=== PATIENT | female | born 1955 | race Caucasian/White ===

== ENCOUNTER 2024-09-04 10:18 | Outpatient (AMB) | payer MEDICARE, MEDICAID, SELFPAY ==
[2024-09-04 10:51] VITALS: BP 154/85; PULSE 57; RESP 18; TEMP 36.7; O2SAT 93; BMI 27.4
--- NOTE | 2024-09-04 10:51 | PD.ORTHCLVIS ---
Vital signs 09/04/24 10:51 Height 1.47 m Height Method Stated Weight 59.647 kg Weight Measurement Method Standing Scale BMI 27.4 BP 154/85 H Blood Pressure Source Automatic Cuff Blood Pressure Location Left Upper Arm Position Sitting Respiration 18 Pulse 57 L Pulse Source Monitor Temp 98.0 F Temp Source Temporal Artery Scan Pulse Oximetry (%) 93 L Oxygen Delivery Method Room Air Med/Allergies Allergies & Medications Allergies codeine Allergy (Intermediate, Verified 09/04/24 10:53) Hives Medication Reconciliation Unobtainable 09/04/24 [History Confirmed 09/04/24] Exam Exam Breathing is nonlabored. Patient has a normal mood and affect. Bilateral extremities were evaluated and demonstrates sensation intact to light touch. Palpable pedal pulses are present. No significant edema is present. Bilateral hips were examined. The patient has no pain with log roll of the hips. Internal rotation to 30 degrees and external rotation to 30 degrees is painless. Negative FADIR. Left knee was examined today. The left knee is in reasonable alignment. Range of motion from 0-120 degrees. Knee is stable to varus and valgus as well as AP translation with <5mm. Patient has a negative McMurrays. There is no pain with patellofemoral compression and no crepitus noted. The knee is nontender to palpation. The right knee was also examined. The patient has a chevron incision. Range of motion 0 to 100 degrees Assessment and Plan Problem List (1) Osteoarthritis of right knee: Status: Acute Plan: Patient is a 69-year-old female with right knee pain and posttraumatic right knee arthritis. She is extensive hardware in the right knee and they have no screw heads which would make the removal very difficult. A total knee replacement would also be may be impossible because of the location of the prior incision. We will continue with conservative treatment for now Recommend knee cortisone injection as patient would like to proceed with conservative treatment at this time. The risks and benefits of the procedure were reviewed with the patient and patient gave verbal consent to continue with the procedure. Procedure: performed by Dr. Boss Using sterile technique the Right knee was thoroughly prepped with alcohol, and approximately 1 cc of Kenalog 40 mg/mL and 4 cc of 1% lidocaine was injected without resistance into the medial tibial femoral joint space. The patient tolerated the procedure. Advanced Care Planning Discussion Advance care planning discussed with:: patient Office Procedures GNS Level of Care Nursing/Assessment Patient Status: Initial/New Patient Nursing Assessment/Reassesment: Medication Reconciliation, Update PMH in EMR and Vital Signs Coordination of Care: Complex Care and Chronic Disease 1-5, Education Complex Pt/Fam, Consent,records obtained, informed consent, 1 Ins Authorization, Lab and Imaging orders, Results/Orders obtained and Staff clarify orders New Patient Charge New Patient Point Assignment: [id number] New Patient Point Charge: LIQUIFIED NATURAL GAS TECHNICIAN Level 4 (3769-9531) Surgical Proc/IM SQ injection Major Surgical Procedure: Yes (KNEE INJECTION) Medication Given Medication Given Medication Given: Yes Documented Dose Given: 4 Route: Infiitration Medication Given Medication Given Medication Given: Yes Documented Dose Given: 4 Route: Infiitration Medication Given Medication Given Medication Given: Yes Documented Dose Given: 1 Route: Infiitration Medication Given Medication Given Medication Given: Yes Documented Dose Given: 1 Route: Infiitration Office Meds Xylocaine 10 mg/mL (1 %) injection solution Performing Provider: James Boss MD Performing Location: [facility] Administered by: James Boss MD on 09/04/24 11:15 Dose Route Admin Location Dispensed Lot Number Expiration Date [facility] Reliability Manager 20 mL Infiltration 20 mL [id number] 01/01/28 93180-053-21 [employer] [employer] Xylocaine 10 mg/mL (1 %) injection solution Performing Provider: James Boss MD Performing Location: [facility] Administered by: James Boss MD on 09/04/24 11:15 Dose Route Admin Location Dispensed Lot Number Expiration Date [facility] Reliability Manager 20 mL Infiltration 20 mL [id number] 01/01/28 66747-725-29 [employer] triamcinolone acetonide 40 mg/mL suspension for injection Performing Provider: James Boss MD Performing Location: [facility] Administered by: James Boss MD on 09/04/24 11:15 Dose Route Admin Location Dispensed Lot Number Expiration Date [facility] Reliability Manager 40 mg intra-articular KNEE 1 mL [id number] 11/30/25 2576-7152-26 [employer] triamcinolone acetonide 40 mg/mL suspension for injection Performing Provider: James Boss MD Performing Location: [facility] Administered by: James Boss MD on 09/04/24 11:15 Dose Route Admin Location Dispensed Lot Number Expiration Date [facility] Reliability Manager 40 mg intra-articular KNEE 1 mL [id number] 11/30/25 1527-0302-96 [employer]ENTER[employer] [place] Intake Visit Data Collection New Patient or Established: Established Patient (seen at [facility] within 3 years) Reason for Visit:: RIGHT HIP PAIN Tuck Pointer Required: No PCP or OBGYN visit in last 3 months: Yes Hx Now: No Do You Feel Safe at Home: Yes Authorities Contacted: N/A Questionairres Past Medical History Past Medical History Have you ever been diagnosed with any of the following: Cardiology Problems Hypertension: Yes Respiratory Problems Smoking: No Smoking Cessation Counseling: No Smoking Exposure: No Surgical History Total Knee Replacement: Yes (RIGHT) Subjective Visit Visit for: new patient, hip (RIGHT) and knee Immunization / Flu Flu Vaccine in the Last 12 Months: Yes Flu Vaccine Exclusion Criteria: Already Received History of Present Illness Chief complaint: Right knee pain Patient Is a Pleasant 61-year-old Female with a History of a Crush Injury to Her Right Tibia over 50 Years Ago. She Is Extensive Hardware in Her Right Knee. She Reports That She Has Been Having Right Knee Pain for Quite A While. She Has a History of Trochanteric Bursitis Has Been Getting Bursa Injections Recently. Pain Pain level (0-10): 4 Pain duration: ALL DAY Pain quality: aching Pain timing: increases with activity Ambulatory data Ambulatory device: none Treatments Improvement with previous injections: No Improvement with PT: No Improvement with NSAIDS: no Review of Systems Review of Systems: All systems negative unless otherwise noted in HPI.
== END 2024-09-04 11:18 | disposition home or self-care (01) ==
PROVIDERS: PCP Family Medicine; Referring Provider Family Medicine; Supervising Provider Orthopaedic Surgery Adult Reconstructive Orthopaedic Surgery; Visit Provider Orthopaedic Surgery Adult Reconstructive Orthopaedic Surgery
DX: M25.561 Pain in right knee (principal); M17.31 Unilateral post-traumatic osteoarthritis, right knee
CPT/HCPCS: 20610; 99204; J3301; J3490; G0463

== ENCOUNTER 2024-12-07 09:39 | Outpatient (AMB) | payer MEDICARE, MEDICAID, SELFPAY ==
[2024-12-07 10:06] VITALS: BP 153/64; PULSE 55; RESP 16; TEMP 36.3; O2SAT 93; BMI 27.1
--- NOTE | 2024-12-07 10:06 | PD.ORTHCLVIS ---
Vital signs 12/07/24 10:06 Height 1.47 m Height Method Stated Weight 58.712 kg Weight Measurement Method Standing Scale BMI 27.1 BP 153/64 H Blood Pressure Source Automatic Cuff Blood Pressure Location Right Upper Arm Position Sitting Respiration 16 Pulse 55 L Pulse Source Monitor Temp 97.3 F Temp Source Temporal Artery Scan Pulse Oximetry (%) 93 L Oxygen Delivery Method Room Air Med/Allergies Allergies & Medications Allergies codeine Allergy (Intermediate, Verified 12/07/24 10:07) Hives Medication Reconciliation Unobtainable 09/04/24 [History Confirmed 12/07/24] Exam Exam Breathing is nonlabored. Patient has a normal mood and affect. Bilateral extremities were evaluated and demonstrates sensation intact to light touch. Palpable pedal pulses are present. No significant edema is present. Bilateral hips were examined. The patient has no pain with log roll of the hips. Internal rotation to 30 degrees and external rotation to 30 degrees is painless. Negative FADIR. Left knee was examined today. The left knee is in reasonable alignment. Range of motion from 0-120 degrees. Knee is stable to varus and valgus as well as AP translation with <5mm. Patient has a negative McMurrays. There is no pain with patellofemoral compression and no crepitus noted. The knee is nontender to palpation. The right knee was also examined. The patient has a chevron incision. Range of motion 0 to 100 degrees Assessment and Plan Problem List (1) Osteoarthritis of right knee: Status: Acute Plan: Patient is a 69-year-old female with right knee pain and posttraumatic right knee arthritis. She has extensive hardware in the right knee and they have no screw heads which would make the removal very difficult. A total knee replacement would also be may be impossible because of the location of the prior incision. She would like a cortisone injection today of her right hip Recommend hip bursa cortisone injection as patient would like to proceed with conservative treatment at this time. The risks and benefits of the procedure were reviewed with the patient and patient gave verbal consent to continue with the procedure. Procedure: performed by Dr. Boss Using sterile technique the right hip bursa was thoroughly prepped with alcohol prep, and approximately 1 cc of Kenalog 40 mg/mL and 4 cc of 1% Lidocaine was injected without resistance. The patient tolerated the procedure well. Advanced Care Planning Discussion Advance care planning discussed with:: patient Office Procedures GNS Level of Care Nursing/Assessment Patient Status: Established Patient Nursing Assessment/Reassesment: Medication Reconciliation, Update PMH in EMR and Vital Signs Coordination of Care: Complex Care and Chronic Disease 1-5, Education Complex Pt/Fam, Consent,records obtained, informed consent, Results/Orders obtained and Staff clarify orders Established Patient Charge Established Patient Point Assignment: 95 Established Patient Point Charge: EP Level 3 (80-115) Surgical Proc/IM SQ injection Major Surgical Procedure: Yes (HIP INJECTION) Medication Given Medication Given Medication Given: Yes Documented Dose Given: 4 Route: Infiitration Medication Given Medication Given Medication Given: Yes Documented Dose Given: 1 Route: Infiitration Office Meds Xylocaine 10 mg/mL (1 %) injection solution Performing Provider: James Boss MD Performing Location: [facility] Administered by: James Boss MD on 12/07/24 10:55 Dose Route Admin Location Dispensed Lot Number Expiration Date [place] Mini [employer] Operator 20 mL Infiltration KNEE 20 mL [id number] 10/03/27 30387-465-15 [facility] triamcinolone acetonide 40 mg/mL suspension for injection Performing Provider: James Boss MD Performing Location: [facility] Administered by: James Boss MD on 12/07/24 10:55 Dose Route Admin Location Dispensed Lot Number Expiration Date [facility] Mini Lab Operator 40 mg intra-articular KNEE 1 mL [id number] 06/03/26 3318-1886-54 [employer] [facility]ENTER[employer] [place] Intake Visit Data Collection New Patient or Established: Established Patient (seen at [facility] within 3 years) Reason for Visit:: FU 3 MNTH RT KNEE INJECTION Seen by Clinical Staff ONLY (RN/MA): No Marketing Forecaster Required: No PCP or OBGYN visit in last 3 months: Yes Hx Now: No Do You Feel Safe at Home: Yes Authorities Contacted: N/A Questionairres Past Medical History Past Medical History Have you ever been diagnosed with any of the following: Cardiology Problems Hypertension: Yes Respiratory Problems Smoking: No Smoking Cessation Counseling: No Smoking Exposure: No Surgical History Total Knee Replacement: Yes (RIGHT) Subjective Visit Visit for: follow up visit and knee (RT KNEE ) Immunization / Flu Flu Vaccine in the Last 12 Months: Yes Flu Vaccine Exclusion Criteria: Already Received History of Present Illness Chief complaint: Right knee pain Patient Is a Pleasant 61-year-old Female with a History of a Crush Injury to Her Right Tibia over 50 Years Ago. She has Extensive Hardware in Her Right Knee. She Reports That She Has Been Having Right Knee Pain for Quite A While. She Has a History of Trochanteric Bursitis Has Been Getting Bursa Injections Recently. She is here for follow-up of her right hip. The right knee is doing well with the last cortisone injection. She would like an injection in her right hip trochanteric bursa Personal History Red flag PMH: none Pain Pain level (0-10): 4 Pain duration: 1 DAY Pain location: posterior Pain quality: aching Pain timing: night and increases with activity Associated signs & symptoms: none Ambulatory data Ambulatory device: none Walking distance (minutes): 1 Treatments Number of previous injections: 2 Improvement with previous injections: Yes Number of Physical Therapy sessions: 12 Improvement with PT: Yes Improvement with NSAIDS: n/a Review of Systems Review of Systems: All systems negative unless otherwise noted in HPI.
== END 2024-12-07 10:44 | disposition home or self-care (01) ==
LOC: HODSRG 09:39
PROVIDERS: PCP Family Medicine; Referring Provider Family Medicine; Supervising Provider Orthopaedic Surgery Adult Reconstructive Orthopaedic Surgery; Visit Provider Orthopaedic Surgery Adult Reconstructive Orthopaedic Surgery
DX: M70.61 Trochanteric bursitis, right hip (principal); M17.11 Unilateral primary osteoarthritis, right knee; M25.561 Pain in right knee; I10 Essential (primary) hypertension
CPT/HCPCS: 20610; 99213; J3301; J3490; G0463

== ENCOUNTER → 2024-12-17 | Outpatient (CLI) | payer MEDICARE, MEDICAID, SELFPAY ==
--- NOTE | 2024-12-17 16:30 | XR_ITS ---
Examination: CT chest, without intravenous contrast. Sagittal and coronal 2-D reconstructions. Exam date and time: December 17, 2024 1636 hours INDICATIONS: Smoking history 40 years CTDI:vol (mGy) 8.17 DLP: (mGycm) 299 Technique: Multiple 3.0 mm axial sections of the chest to been obtained. Bone and lung density settings are obtained. Sagittal and coronal 2-D reconstructions have been obtained. Low dose protocols were performed. One or more of the following dose reduction techniques were used; automated exposure control, adjustment of the mA and/or KV according to patient size, use of iterative reconstruction technique. Findings: 35 mm high left periaortic lymphadenopathy 17 mm aortopulmonary window lymph node No thoracic aortic aneurysmal dilatation 9 mm pulmonary nodule spiculated margins left upper lobe No pneumonia or urinary edema Small liver calcifications No pancreatic mass Contracted gallbladder No adrenal mass IMPRESSION: This patient should return for CT chest post contrast to confirm tumor mediastinal lymphadenopathy. 9 mm pulmonary nodule spiculated margins left upper lobe
== END | disposition home or self-care (01) ==
PROVIDERS: Referring Provider Physician Assistant Medical; Visit Provider Physician Assistant Medical
DX: R91.1 Solitary pulmonary nodule (principal); R59.0 Localized enlarged lymph nodes; F17.211 Nicotine dependence, cigarettes, in remission
CPT/HCPCS: 71271

== ENCOUNTER → 2025-01-16 | Outpatient (CLI) | payer MEDICARE, MEDICAID, SELFPAY ==
--- NOTE | 2025-01-16 12:40 | XR_ITS ---
Examination: Bone densitometry Date and time of exam:January 16, 2025 1136 hours INDICATIONS: Menopause age 43 vitamin D 2 years calcium 10 years, steroid injections 10 years, personal history osteoporosis Technique: Lumbar spine and hip total bone mineralization values of an calculated. Peak reference and age match control results have been displayed. Findings: Lumbar spine total bone mineralization is0.796 gm/cm2. This is 2.3 standard deviations below peak reference. This is 0.3 standard deviations below age-matched controls. Hip total bone mineralization is 0.715 gm/cm2 This is 1.9 standard deviations below peak reference. This is 0.4 standard deviations below age-matched controls Impression: There is osteopenia based on lumbar spine measurements. There is osteopenia based on hip measurements Lumbar mineralization is increased 4.5% compared with July 28, 2022. Hip mineralization is increased 4.2% compared with July 28, 2022
== END | disposition home or self-care (01) ==
PROVIDERS: PCP Physician Assistant Medical; Referring Provider Physician Assistant Medical; Visit Provider Physician Assistant Medical
DX: M85.89 Other specified disorders of bone density and structure, multiple sites (principal)
CPT/HCPCS: 77080

== ENCOUNTER → 2025-01-18 | Outpatient (CLI) | payer MEDICARE, MEDICAID, SELFPAY ==
--- NOTE | 2025-01-18 15:00 | XR_ITS ---
Examination: CT chest with intravenous contrast 2-D sagittal and coronal reconstructions Exam date and time: January 18, 2025 1503 hours Comparison December 17, 2024 INDICATIONS: 9 mm pulmonary nodule spiculated margins left upper lobe on CT chest December 17, 2024, smoking history CTDI:vol (mGy) 8.4 DLP: (mGycm) 586 Technique: Multiple axial sections of the thorax have been obtained. Sections have been obtained, 3 mm slice thickness. Mediastinal and lung density settings have been obtained. Intravenous contrast administered, 60 cc [id number]-370. 2-D sagittal, coronal images obtained. Low dose protocols were performed. One or more of the following dose reduction techniques were used; automated exposure control, adjustment of the mA and/or KV according to patient size, use of iterative reconstruction technique. Findings: Again noted 35 mm high left periaortic lymphadenopathy and 17 mm nodule in the aortopulmonary window No thoracic aortic aneurysm dilatation No pulmonary artery filling defects Stable 9 mm pulmonary nodule left upper lobe No new pulmonary nodules No pneumonia or pulmonary edema or pleural disease No visualized liver or splenic lesions No pancreatic mass Aorta not enlarged No visualized abdominal lymphadenopathy No hydronephrosis Moderate osteopenia Negative for osseous metastatic disease IMPRESSION: Stable mediastinal lymphadenopathy Stable 9 mm pulmonary nodule left upper lobe No new pulmonary nodules
== END | disposition home or self-care (01) ==
PROVIDERS: PCP Physician Assistant Medical; Referring Provider Physician Assistant Medical; Visit Provider Physician Assistant Medical
DX: R59.0 Localized enlarged lymph nodes (principal); R91.1 Solitary pulmonary nodule
CPT/HCPCS: 71260; A4649; Q9967

== ENCOUNTER → 2025-02-20 | Outpatient (CLI) | payer MEDICARE, MEDICAID, SELFPAY ==
--- NOTE | 2025-02-20 08:30 | XR_ITS ---
Examination: Screening digital mammography, bilateral Computer aided detection 3-D breast Tomosynthesis, bilateral Date and time of exam: February 20, 2025 0816 hours Compared to mammograms dating to December 19, 2020 Indication: Screening Technique: Nonmagnified MLO, CC views of the breasts to been obtained, reconstructed from 3-D Tomosynthesis images. R2 computer aided detection program utilized for evaluation of suspicious masses and/or abnormal calcifications. 3-D Tomosynthesis images obtained. Findings: Scattered areas of fibroglandular density. 10 mm nodular asymmetry 12:00 position left breast Benign calcifications Impression: BI-RADS Category 0: Incomplete: Need additional imaging evaluation Recommend follow-up spot tomographic views of 10 mm nodular asymmetry 12:00 position left breast as well as bilateral breast sonography to complete the workup
== END | disposition home or self-care (01) ==
LOC: CDIM 07:56
PROVIDERS: Referring Provider Physician Assistant Medical; Visit Provider Physician Assistant Medical
DX: Z12.31 Encounter for screening mammogram for malignant neoplasm of breast (principal); N64.89 Other specified disorders of breast
CPT/HCPCS: 77063; 77067

== ENCOUNTER 2025-03-12 08:48 | Outpatient (AMB) | payer MEDICARE, MEDICAID, SELFPAY ==
--- NOTE | 2025-03-12 09:14 | PD.ORTHCLVIS ---
Vital signs 03/12/25 09:17 Height 1.47 m Height Method Stated Weight 59.903 kg Weight Measurement Method Standing Scale BMI 27.7 BP 154/86 H Blood Pressure Source Automatic Cuff Blood Pressure Location Left Upper Arm Position Sitting Respiration 19 Pulse 62 Pulse Source Monitor Temp 97.7 F Temp Source Temporal Artery Scan Pulse Oximetry (%) 93 L Oxygen Delivery Method Room Air Med/Allergies Allergies & Medications Allergies codeine Allergy (Intermediate, Verified 03/12/25 09:18) Hives Medication Reconciliation Unobtainable 09/04/24 [History Confirmed 03/12/25] Exam Exam Breathing is nonlabored. Patient has a normal mood and affect. Bilateral extremities were evaluated and demonstrates sensation intact to light touch. Palpable pedal pulses are present. No significant edema is present. Bilateral hips were examined. The patient has no pain with log roll of the hips. Internal rotation to 30 degrees and external rotation to 30 degrees is painless. Negative FADIR. Left knee was examined today. The left knee is in reasonable alignment. Range of motion from 0-120 degrees. Knee is stable to varus and valgus as well as AP translation with <5mm. Patient has a negative McMurrays. There is no pain with patellofemoral compression and no crepitus noted. The knee is nontender to palpation. The right knee was also examined. The patient has a chevron incision. Range of motion 0 to 100 degrees. Knee feels stable varus valgus stresses AP translation Right knee x-rays demonstrates hardware in the tibia including multiple screws and K wires. Assessment and Plan Problem List (1) Osteoarthritis of right knee: Status: Acute Plan: Patient is a 69-year-old female with right knee pain and posttraumatic right knee arthritis. She has extensive hardware in the right knee and they have no screw heads which would make the removal very difficult. A total knee replacement would also be at high risk for complications given the chevron incision although it is now 40 years old. I would like to get a CT scan to evaluate the bony deformity including her old tibial plateau fracture to make sure that there is no nonunion present. I would also like to see where the screw and wires are present. We will see her back after this is done for a possible total knee replacement discussion Advanced Care Planning Discussion Advance care planning discussed with:: patient Office Procedures GNS Level of Care Nursing/Assessment Patient Status: Established Patient Nursing Assessment/Reassesment: Medication Reconciliation, Update PMH in EMR and Vital Signs Coordination of Care: Complex Care and Chronic Disease 1-5, Education Complex Pt/Fam, Consent,records obtained, informed consent, Results/Orders obtained and Staff clarify orders Established Patient Charge Established Patient Point Assignment: 95 Established Patient Point Charge: EP Level 3 (80-115) MA Intake Visit Data Collection New Patient or Established: Established Patient (seen at [facility] within 3 years) Reason for Visit:: FU 3 MNTH RT KNEE INJECTION Seen by Clinical Staff ONLY (RN/MA): No Cardiopulmonary Supervisor Required: No PCP or OBGYN visit in last 3 months: Yes Hx Now: No Do You Feel Safe at Home: Yes Authorities Contacted: N/A Questionairres Past Medical History Past Medical History Have you ever been diagnosed with any of the following: Cardiology Problems Hypertension: Yes Respiratory Problems Smoking: No Smoking Cessation Counseling: No Smoking Exposure: No Surgical History Total Knee Replacement: Yes (RIGHT) Subjective Visit Visit for: follow up visit and knee (RT KNEE ) Immunization / Flu Flu Vaccine in the Last 12 Months: Yes Flu Vaccine Exclusion Criteria: Already Received History of Present Illness Chief complaint: Right knee pain Patient Is a Pleasant 61-year-old Female with a history of a crush injury to her right tibial years ago. She had ORIF with retained hardware. This was performed through a chevron incision on her tibia with multiple 9 degree angles. She has had multiple injections in the past including over 3 as well as anti-inflammatories. She reports the pain is affecting her quality life and the last injection did not work for very long. She would like to consider surgical options Personal History Red flag PMH: none Pain Pain level (0-10): 4 Pain duration: 1 DAY Pain location: posterior Pain quality: aching Pain timing: night and increases with activity Associated signs & symptoms: none Ambulatory data Ambulatory device: none Walking distance (minutes): 1 Treatments Number of previous injections: 2 Improvement with previous injections: Yes Number of Physical Therapy sessions: 12 Improvement with PT: Yes Improvement with NSAIDS: n/a Review of Systems Review of Systems: All systems negative unless otherwise noted in HPI.
[2025-03-12 09:17] VITALS: BP 154/86; PULSE 62; RESP 19; TEMP 36.5; O2SAT 93; BMI 27.7
--- NOTE | 2025-03-12 09:22 | XR_ITS ---
Examination: Bilateral knees 2 views Right lateral knee left lateral knee 2 views Bilateral axial knees single view TECHNIQUE: Bilateral AP knees standing single view, bilateral PA knees standing single view flexion Standing right lateral knee left lateral knee 2 views Bilateral axial knees single view total 5 views INDICATIONS: Bilateral knee pain several years, right knee surgery age 20 FINDINGS: Prominent osteopenia. Right knee severe tricompartment osteoarthritis Orthopedic hardware healed proximal tibial fracture No acute fracture Moderate to advanced narrowing medial joint space left knee Moderate to advanced osteoarthritis left patellofemoral joint Bilateral moderate knee effusions IMPRESSION: Right knee severe tricompartment osteoarthritis Moderate to advanced osteoarthritis medial and patellofemoral joints left knee
== END 2025-03-12 09:23 | disposition home or self-care (01) ==
LOC: HODSRG 08:48
PROVIDERS: PCP Family Medicine; Referring Provider Family Medicine; Supervising Provider Orthopaedic Surgery Adult Reconstructive Orthopaedic Surgery; Visit Provider Orthopaedic Surgery Adult Reconstructive Orthopaedic Surgery
DX: M17.11 Unilateral primary osteoarthritis, right knee (principal); I10 Essential (primary) hypertension
CPT/HCPCS: 73564; 99213; G0463

== ENCOUNTER 2025-03-26 10:51 | Outpatient (AMB) | payer MEDICARE, MEDICAID, SELFPAY ==
[2025-03-26 11:04] VITALS: BP 132/73; PULSE 69; RESP 18; TEMP 36.8; O2SAT 92; BMI 28.3
--- NOTE | 2025-03-26 11:04 | ORTHONT_ITS ---
Vital signs 03/26/25 11:04 Height 1.47 m Height Method Measured Weight 61.263 kg Weight Measurement Method Standing Scale BMI 28.3 BP 132/73 H Blood Pressure Source Automatic Cuff Blood Pressure Location Left Upper Arm Position Sitting Respiration 18 Pulse 69 Pulse Source Monitor Temp 98.3 F Temp Source Temporal Artery Scan Pulse Oximetry (%) 92 L Oxygen Delivery Method Room Air Med/Allergies Allergies & Medications Allergies codeine Allergy (Intermediate, Verified 03/26/25 11:05) Hives Medication Reconciliation Unobtainable 09/04/24 [History Confirmed 03/26/25] Exam Exam Breathing is nonlabored. Patient has a normal mood and affect. Bilateral extremities were evaluated and demonstrates sensation intact to light touch. Palpable pedal pulses are present. No significant edema is present. Bilateral hips were examined. The patient has no pain with log roll of the hips. Internal rotation to 30 degrees and external rotation to 30 degrees is painless. Negative FADIR. Left knee was examined today. The left knee is in reasonable alignment. Range of motion from 0-120 degrees. Knee is stable to varus and valgus as well as AP translation with <5mm. Patient has a negative McMurrays. There is no pain with patellofemoral compression and no crepitus noted. The knee is nontender to palpation. The right knee was also examined. The patient has a chevron incision. Range of motion 0 to 100 degrees. Knee feels stable varus valgus stresses AP translation Right knee x-rays demonstrates hardware in the tibia including multiple screws and K wires. Left knee x-rays demonstrate moderate arthritis Assessment and Plan Problem List (1) Osteoarthritis of right knee: Status: Acute Plan: Patient is a 69-year-old female with right knee pain and posttraumatic right knee arthritis. she has bilateral knee arthritis and would like bilateral knee injections today Recommend knee cortisone injection as patient would like to proceed with conser vative treatment at this time. The risks and benefits of the procedure were reviewed with the patient and patient gave verbal consent to continue with the procedure. Procedure: performed by Dr. Boss Using sterile technique the Right knee was thoroughly prepped with alcohol, and approximately 1 cc of Depo-Medrol 80mg/mL and 4 cc of 0.2% ropivacaine was injected without resistance into the medial tibial femoral joint space. The patient tolerated the procedure. Recommend knee cortisone injection as patient would like to proceed with conservative treatment at this time. The risks and benefits of the procedure were reviewed with the patient and patient gave verbal consent to continue with the procedure. Procedure: performed by Dr. Boss Using sterile technique the left knee was thoroughly prepped with alcohol, and approximately 1 cc of Depo-Medrol 80mg/mL and 4 cc of 0.2% ropivacaine was injected without resistance into the medial tibial femoral joint space. The patient tolerated the procedure. Advanced Care Planning Discussion Advance care planning discussed with:: patient Office Procedures GNS Level of Care Nursing/Assessment Patient Status: Established Patient Nursing Assessment/Reassesment: Medication Reconciliation, Update PMH in EMR and Vital Signs Coordination of Care: Complex Care and Chronic Disease 1-5, Education Complex Pt/Fam, Consent,records obtained, informed consent, Results/Orders obtained and Staff clarify orders Established Patient Charge Established Patient Point Assignment: 95 Established Patient Point Charge: EP Level 3 (80-115) Surgical Proc/IM SQ injection Minor Surgical Procedure: Yes (KNEE INJECTION) Medication Given Medication Given Medication Given: Yes Documented Dose Given: 1 Route: Infiitration Medication Given Medication Given Medication Given: Yes Documented Dose Given: 1 Route: Infiitration Medication Given Medication Given Medication Given: Yes Documented Dose Given: 4 Route: Infiitration Medication Given Medication Given Medication Given: Yes Documented Dose Given: 4 Route: Infiitration Office Meds methylprednisolone acetate 80 mg/mL suspension for injection Performing Provider: James Boss MD Performing Location: [facility] Administered by: James Boss MD on 03/26/25 11:53 Dose Route Admin Location Dispensed Lot Number Expiration Date Pack age [facility] [employer] 80 mg intra-articular KNEE 1 mL [id number] 06/02/26 [address]-6 7 [id number] [employer] methylprednisolone acetate 80 mg/mL suspension for injection Performing Provider: James Boss MD Performing Location: [facility] Administered by: James Boss MD on 03/26/25 11:53 Dose Route Admin Location Dispensed Lot Number Expiration Date Pack age [facility] [employer] 80 mg intra-articular KNEE 1 mL [id number] 06/02/26 [address]-2 7 [id number] [employer] ropivacaine (PF) 2 mg/mL (0.2 %) injection solution Performing Provider: James Boss MD Performing Location: [facility] Administered by: James Boss MD on 03/26/25 11:53 Dose Route Admin Location Dispensed Lot Number Expiration Date Pack age [facility] [employer] 20 mL Infiltration KNEE 20 mL [id number] 08/03/27 95132-950-69 [id number] [email or web address] [facility] ropivacaine (PF) 2 mg/mL (0.2 %) injection solution Performing Provider: James Boss MD Performing Location: [facility] Administered by: James Boss MD on 03/26/25 11:53 Dose Route Admin Location Dispensed Lot Number Expiration Date Pack age [facility] [place] [employer] 20 mL Infiltration KNEE 20 mL [id number] 08/03/27 84861-368-59 [id number] [facility] Intake Visit Data Collection New Patient or Established: Established Patient (seen at [facility] within 3 years) Reason for Visit:: XRAY RESULTS Seen by Clinical Staff ONLY (RN/MA): No Specialist Physician Required: No PCP or OBGYN visit in last 3 months: Yes Hx Now: No Do You Feel Safe at Home: Yes Authorities Contacted: N/A Questionairres Past Medical History Past Medical History Have you ever been diagnosed with any of the following: Cardiology Problems Hypertension: Yes Respiratory Problems Smoking: No Smoking Cessation Counseling: No Smoking Exposure: No Surgical History Total Knee Replacement: Yes (RIGHT) Subjective Visit Visit for: follow up visit and knee (RT KNEE ) Immunization / Flu Flu Vaccine in the Last 12 Months: Yes Flu Vaccine Exclusion Criteria: Already Received History of Present Illness Chief complaint: Right knee pain Patient Is a Pleasant 61-year-old Female with a history of a crush injury to her right tibial years ago. She had ORIF with retained hardware. This was performed through a chevron incision on her tibia with multiple 9 degree angles. She has had multiple injections in the past including over 3 as well as anti- inflammatories. She reports the pain is affecting her quality life and the last injection did not work for very long. She would like to consider surgical options Personal History Red flag PMH: none Pain Pain level (0-10): 4 Pain duration: 1 DAY Pain location: posterior Pain quality: aching Pain timing: night and increases with activity Associated signs & symptoms: none Ambulatory data Ambulatory device: none Walking distance (minutes): 1 Treatments Number of previous injections: 2 Improvement with previous injections: Yes Number of Physical Therapy sessions: 12 Improvement with PT: Yes Improvement with NSAIDS: n/a Review of Systems Review of Systems: All systems negative unless otherwise noted in HPI.
== END 2025-03-26 11:13 | disposition home or self-care (01) ==
LOC: HODSRG 10:51
PROVIDERS: PCP Family Medicine; Referring Provider Family Medicine; Supervising Provider Orthopaedic Surgery Adult Reconstructive Orthopaedic Surgery; Visit Provider Orthopaedic Surgery Adult Reconstructive Orthopaedic Surgery
DX: M17.0 Bilateral primary osteoarthritis of knee (principal); I10 Essential (primary) hypertension; M25.561 Pain in right knee
CPT/HCPCS: 20610; 99213; J1010; J2795; G0463

== ENCOUNTER → 2025-04-10 | Outpatient (CLI) | payer MEDICARE, MEDICAID, SELFPAY ==
--- NOTE | 2025-04-10 11:30 | XR_ITS ---
Examination: Breast ultrasound complete, bilateral Date and time of exam: April 10, 2025, 11:30 a.m. INDICATIONS: Mammogram February 20, 2025 10 mm nodular asymmetry 12 o'clock position left breast Technique: Real-time grayscale ultrasonographic imaging bilateral breasts, including all 4 quadrants as well as nipple retroareolar and axillary regions. Findings: 12:00 nodule lobular margins 4 x 3 mm IMPRESSION: BI-RADS Category 3: Probably benign findings 1 additional 6-month right breast sonogram follow-up is needed to document stability of 12:00 nodule described above
--- NOTE | 2025-04-10 13:00 | XR_ITS ---
Examination: Diagnostic digital mammography, unilateral, left Computer aided detection 3-D breast Tomosynthesis, unilateral Date and time of exam: April 10, 2025, 1119 hours INDICATIONS: Mammogram February 20, 2025 10 mm nodular asymmetry left breast 12 o'clock position Technique: Nonmagnified MLO, CC views of the left breast have been obtained, reconstructed from 3-D Tomosynthesis images. R2 computer aided detection program utilized for evaluation of suspicious masses and/or abnormal calcifications. 3-D Tomosynthesis images obtained. Findings: Scattered areas of fibroglandular density 12:00 nodule is depicted, 8 mm Impression: BI-RADS category 3: Probably benign findings 1 additional 6-month left mammogram follow-up is needed
== END | disposition home or self-care (01) ==
LOC: CDIM 11:11
PROVIDERS: Referring Provider Physician Assistant Medical; Visit Provider Physician Assistant Medical
DX: R92.332 Mammographic heterogeneous density, left breast (principal); N63.15 Unspecified lump in the right breast, overlapping quadrants
CPT/HCPCS: 76641; 77061; 77065; G0279

== ENCOUNTER → 2025-05-01 | Outpatient (CLI) | payer MEDICARE, MEDICAID, SELFPAY ==
--- NOTE | 2025-05-01 11:00 | XR_ITS ---
Examination: CT chest with intravenous contrast 2-D sagittal and coronal reconstructions Exam date and time: May 01, 2025, 1137 hours INDICATIONS: CT chest January 19, 2020 five 35mm hilar periaortic lymph node 17 mm nodule in the aortopulmonary window, 9 mm pulmonary nodule left upper lobe CTDI:vol (mGy) 8.09 DLP: (mGycm) 267 Technique: Multiple axial sections of the thorax have been obtained. Sections have been obtained, 3 mm slice thickness. Mediastinal and lung density settings have been obtained. Intravenous contrast administered, 60 cc Isovue-370. 2-D sagittal, coronal images obtained. Low dose protocols were performed. One or more of the following dose reduction techniques were used; automated exposure control, adjustment of the mA and/or KV according to patient size, use of iterative reconstruction technique. Findings: Stable 17 mm lymph node high para-aortic Stable 17 mm lymph node in the aortopulmonary window Stable mild left hilar lymphadenopathy No thoracic aortic aneurysm dilatation No pulmonary artery filling defects 10 mm spiculated nodule left upper lobe No interval pneumonia or pulmonary edema No visualized liver or splenic lesion No hydronephrosis IMPRESSION: Stable mediastinal lymphadenopathy 10 mm spiculated nodule left upper lobe compared to 9 mm on the prior study Suggest continued 6-month follow-up CT chest without contrast
== END | disposition home or self-care (01) ==
LOC: SCAT 10:40
PROVIDERS: PCP Physician Assistant Medical; Referring Provider Physician Assistant Medical; Visit Provider Physician Assistant Medical
DX: R59.0 Localized enlarged lymph nodes (principal); R91.1 Solitary pulmonary nodule
CPT/HCPCS: 71260; A4649; Q9967

== ENCOUNTER 2025-06-25 10:26 | Outpatient (AMB) | payer MEDICARE, MEDICAID, SELFPAY ==
--- NOTE | 2025-06-25 10:53 | PD.ORTHCLVIS ---
Vital signs 06/25/25 10:54 Height 1.47 m Height Method Stated Weight 59.506 kg Weight Measurement Method Standing Scale BMI 27.5 BP 126/80 Blood Pressure Source Automatic Cuff Blood Pressure Location Left Upper Arm Position Sitting Respiration 18 Pulse 62 Pulse Source Monitor Temp 98.1 F Temp Source Temporal Artery Scan Pulse Oximetry (%) 93 L Oxygen Delivery Method Room Air Med/Allergies Allergies & Medications Allergies codeine Allergy (Intermediate, Verified 06/25/25 10:55) Hives Medication Reconciliation Unobtainable 09/04/24 [History Confirmed 06/25/25] Exam Exam Breathing is nonlabored. Patient has a normal mood and affect. Bilateral extremities were evaluated and demonstrates sensation intact to light touch. Palpable pedal pulses are present. No significant edema is present. Bilateral hips were examined. The patient has no pain with log roll of the hips. Internal rotation to 30 degrees and external rotation to 30 degrees is painless. Negative FADIR. Left knee was examined today. The left knee is in reasonable alignment. Range of motion from 0-120 degrees. Knee is stable to varus and valgus as well as AP translation with <5mm. Patient has a negative McMurrays. There is no pain with patellofemoral compression and no crepitus noted. The knee is nontender to palpation. The right knee was also examined. The patient has a chevron incision. Range of motion 0 to 100 degrees. Knee feels stable varus valgus stresses AP translation Right knee x-rays demonstrates hardware in the tibia including multiple screws and K wires. Left knee x-rays demonstrate moderate arthritis Assessment and Plan Problem List (1) Osteoarthritis of right knee: Status: Acute Plan: Patient is a 69-year-old female with right knee pain and posttraumatic right knee arthritis. she has bilateral knee arthritis and would like bilateral knee injections today Recommend knee cortisone injection as patient would like to proceed with conservative treatment at this time. The risks and benefits of the procedure were reviewed with the patient and patient gave verbal consent to continue with the procedure. Procedure: performed by Dr. Boss Using sterile technique the Right knee was thoroughly prepped with alcohol, and approximately 1 cc of Depo-Medrol 80mg/mL and 4 cc of 0.2% ropivacaine was injected without resistance into the medial tibial femoral joint space. The patient tolerated the procedure. Recommend knee cortisone injection as patient would like to proceed with conservative treatment at this time. The risks and benefits of the procedure were reviewed with the patient and patient gave verbal consent to continue with the procedure. Procedure: performed by Dr. Boss Using sterile technique the left knee was thoroughly prepped with alcohol, and approximately 1 cc of Depo-Medrol 80mg/mL and 4 cc of 0.2% ropivacaine was injected without resistance into the medial tibial femoral joint space. The patient tolerated the procedure. Advanced Care Planning Discussion Advance care planning discussed with:: patient Office Procedures GNS Level of Care Nursing/Assessment Patient Status: Established Patient Nursing Assessment/Reassesment: Medication Reconciliation, Update PMH in EMR and Vital Signs Coordination of Care: Complex Care and Chronic Disease 1-5, Education Complex Pt/Fam, Consent,records obtained, informed consent, Results/Orders obtained and Staff clarify orders Established Patient Charge Established Patient Point Assignment: 95 Established Patient Point Charge: EP Level 3 (80-115) Surgical Proc/IM SQ injection Minor Surgical Procedure: Yes (BILATERAL KNEE INJECTION) Medication Given Medication Given Medication Given: Yes Documented Dose Given: 2 Route: Infiitration Medication Given Medication Given Medication Given: Yes Documented Dose Given: 8 Route: Infiitration Office Meds methylprednisolone acetate 80 mg/mL suspension for injection Performing Provider: James Boss MD Performing Location: [facility] Administered by: James Boss MD on 06/25/25 14:25 Dose Route Admin Location Dispensed Lot Number Expiration Date Package [facility] [employer] 160 mg intra-articular KNEE 2 mL [id number] 03/02/27 [address]-7 [id number] [employer] ropivacaine (PF) 2 mg/mL (0.2 %) injection solution Performing Provider: James Boss MD Performing Location: [facility] Administered by: James Boss MD on 06/25/25 14:25 Dose Route Admin Location Dispensed Lot Number Expiration Date Package [facility] [employer] 40 mL Infiltration KNEE 40 mL [id number] 11/30/26 5696-8793-76 [id number] [facility] [place] Intake Visit Data Collection New Patient or Established: Established Patient (seen at [facility] within 3 years) Reason for Visit:: 3MTH BL KNEE INJ Seen by Clinical Staff ONLY (RN/MA): No Certified [employer] Required: No PCP or OBGYN visit in last 3 months: Yes Hx Now: No Do You Feel Safe at Home: Yes Authorities Contacted: N/A Questionairres Past Medical History Past Medical History Have you ever been diagnosed with any of the following: Cardiology Problems Hypertension: Yes Respiratory Problems Smoking: No Smoking Cessation Counseling: No Smoking Exposure: No Surgical History Total Knee Replacement: Yes (RIGHT) Subjective Visit Visit for: follow up visit and knee (RT KNEE ) Immunization / Flu Flu Vaccine in the Last 12 Months: Yes Flu Vaccine Exclusion Criteria: Already Received History of Present Illness Chief complaint: Right knee pain Patient Is a Pleasant 61-year-old Female with a history of a crush injury to her right tibial years ago. She had ORIF with retained hardware. This was performed through a chevron incision on her tibia with multiple 9 degree angles. She has had multiple injections in the past including over 3 as well as anti-inflammatories. She reports the pain is affecting her quality life and the last injection did not work for very long. She would like repeat cortisone injections as she is dealing with some lung issues Personal History Red flag PMH: none Pain Pain level (0-10): 4 Pain duration: 1 DAY Pain location: posterior Pain quality: aching Pain timing: night and increases with activity Associated signs & symptoms: none Ambulatory data Ambulatory device: none Walking distance (minutes): 1 Treatments Number of previous injections: 2 Improvement with previous injections: Yes Number of Physical Therapy sessions: 12 Improvement with PT: Yes Improvement with NSAIDS: n/a Review of Systems Review of Systems: All systems negative unless otherwise noted in HPI.
[2025-06-25 10:54] VITALS: BP 126/80; PULSE 62; RESP 18; TEMP 36.7; O2SAT 93; BMI 27.5
== END 2025-06-25 11:03 | disposition home or self-care (01) ==
LOC: HODSRG 10:26
PROVIDERS: Supervising Provider Orthopaedic Surgery Adult Reconstructive Orthopaedic Surgery; Visit Provider Orthopaedic Surgery Adult Reconstructive Orthopaedic Surgery
DX: M17.0 Bilateral primary osteoarthritis of knee (principal); M25.561 Pain in right knee
CPT/HCPCS: 20610; 99213; J1010; J2795; G0463